=== PATIENT | male | born 1935 | race Caucasian/White ===

== ENCOUNTER 2022-12-09 12:48 | Emergency (ER) | payer OTHER, MEDICAID ==
[~2022-12-09] VITALS: Ht 170.2 cm; Wt 87.5 kg
[2022-12-09 12:49] VITALS: BP 158/96
--- NOTE | 2022-12-09 13:04 | NUR ---
had a fall last night, fell off his bed, has small cuts at upper lip and c/o upper back pain
[2022-12-09] MEDS ORDERED: HYDROcodone/APAP 10/325 MG 1 TAB TAB PO PRN (13:10)
--- NOTE | 2022-12-09 13:21 | NUR ---
UPPER LIP WOUND IRRIGATED WITH BETADINE x NS
--- NOTE | 2022-12-09 13:32 | NUR ---
pt to ct
[2022-12-09] MEDS ORDERED: LID5T TP (15:34)
[2022-12-09] MEDS ORDERED: ACET-8905 PO (15:34)
[2022-12-09] MEDS ORDERED: IBUP-2213 PO (15:34)
--- NOTE | 2022-12-09 15:40 | NUR ---
Patient discharged with v/s stable. Written and verbal after care instructions given and explained. Patient alert, oriented and verbalized understanding of instructions. Ambulatory with steady gait. All questions addressed prior to discharge. ID band removed. Patient advised to follow up with PMD. Rx of LIDODERM, NORCO given. Patient educated on indication of medication including possible reaction and side effects. Opportunity to ask questions provided and answered.
== END 2022-12-09 15:39 | disposition home or self-care (01) ==
LOC: MED 12:48
DX: S01.511A Laceration without foreign body of lip, initial encounter (principal); S27.52XA Contusion of thoracic trachea, initial encounter; E11.9 Type 2 diabetes mellitus without complications; I10 Essential (primary) hypertension; E78.5 Hyperlipidemia, unspecified; Z79.4 Long term (current) use of insulin; Z79.899 Other long term (current) drug therapy; W06.XXXA Fall from bed, initial encounter; Y93.89 Activity, other specified; Y92.89 Other specified places as the place of occurrence of the external cause; Y99.8 Other external cause status
CPT/HCPCS: 70450; 72128; 99284